=== PATIENT | male | born 1960 | race Caucasian/White ===

== ENCOUNTER → 2019-02-21 | Outpatient (CLI) | payer OTHER ==
--- NOTE | 2019-02-21 15:41 | CT ---
EXAMINATION TYPE: CT sinus wo con DATE OF EXAM: 02/21/2019 COMPARISON: None HISTORY: Frontal sinus pain and headaches. CT DLP: 633 mGycm CONTRAST: 0 mL of Isovue 300 The paranasal sinuses are examined in the axial plane at 2 mm thick sections. Reconstructed images i n the coronal plane were obtained. There is dental amalgam scatter artifact There is mucosal thickening within the inferior medial right maxillary sinus. Diffuse mucosal thicke neftaly is through the ethmoid air cells bilaterally. The sphenoid sinuses are clear. The frontal sinu ses are clear. The septum is evaluated. There is septal deviation to the left. The ostiomeatal units are patent. IMPRESSIONS: 1. Mucosal thickening within bilateral ethmoid air cells and within the inferior medial right maxill josesito sinus. 2. Frontal sinuses are clear. 3. No suspicious air-fluid levels are evident. 4. Left septal deviation.
== END | disposition home or self-care (01) ==
LOC: RADCTMAIN 15:04
PROVIDERS: ATTEND Otolaryngology
DX: J34.2 Deviated nasal septum (principal); J32.9 Chronic sinusitis, unspecified
CPT/HCPCS: 70486